=== PATIENT | female | born 1985 | race Caucasian/White ===

== ENCOUNTER → 2023-09-03 13:17 | Outpatient (BNVA) | payer OTHER, SELFPAY | PROVIDERS: Visit Provider Obstetrics & Gynecology | DX: Z12.4 Encounter for screening for malignant neoplasm of cervix (principal) | CPT/HCPCS: 87624 ==

== ENCOUNTER 2024-01-15 13:13 | Observation (INO) | payer OTHER, SELFPAY ==
--- NOTE | 2024-01-07 10:09 | P.ANESASSM_ITS ---
Pre-Anesthetic Assessment Height/Weight: Height 1.55 m Operation Date: 01/15/24 13:40 Proposed Procedures p Anterior Repair Anterior Colporrhaphy 43457, 64376, N81.10, N39.3(Not Applicable) - Hamlet Morse MD s Sling Single Incision Midurethral Sling(Not Applicable) - Hamlet Morse MD Social No alcohol and No tobacco Exam alert, oriented x 3, clear to auscultation bilaterally and regular rate & rhythm Airway Submandibular: within normal limits Cervical ROM: within normal limits Mallampati: Class I Dentition: partials History/ROS No significant history except as noted Pulmonary None reported CV/HEM None reported Hepatic None reported Anesthetic Plan ASA status: 2 Anesthesia: General Risk of > 500 ml blood loss (7ml/kg in children): No Medications/Allergies Home Medications Medication Instructions Recorded Confirmed Last Taken Type liraglutide 0.6 mg/0.1 mL (18 mg/3 0.6 mg SUBCUT DAILY 09/03/23 01/07/24 01/01/24 History mL) subcutaneous pen injector (Victoza 3-Antoni) oxycodone-acetaminophen 7.5 mg-325 1 tab PO TID PRN Pain 09/03/23 01/07/24 01/07/24 History mg tablet (Percocet) Allergies Allergy/AdvReac Type Severity Reaction Status Date / Time No Known Allergies Allergy Verified 01/07/24 08:24 PFS Anesthesia Family History Grandmother Breast cancer Heart disease Stroke Diabetes Grandfather Heart disease Father Heart disease Hypertension Denies family history of Colon cancer Ovarian cancer Prostate cancer Hypercholesteremia Hyperlipidemia Uterine cancer Thyroid disease Social History Smoking and tobacco/nicotine status: never used tobacco/nicotine Data Anesthesia 01/07/24 09:50 01/07/24 09:50 Cardiac Studies: 2 No Data to Display
[2024-01-07 10:11] LABS: Basophils # 0.1 10^3/uL (0.0-0.1); Basophils % 0.6 %; Eosinophils # 0.1 10^3/uL (0.0-0.8); Hematocrit 40.4 % (36-47); Lymphocytes # 2.6 10^3/uL (0.8-4.8); Lymphocytes % 27.6 %; Mean Corpuscular HGB Conc 34.4 g/dL (30-55); Mean Corpuscular Hemoglobin 31.1 pg (27-33); Mean Corpuscular Volume 90.4 fl (85-98); Mean Platelet Volume 10.8 fL (7.4-10.4); Monocytes # 0.5 10^3/uL (0.2-0.9); Monocytes % 5.7 %; Neutrophils # 6.03 10^3/uL (1.8-7.7); Neutrophils % 64.9 %; Nucleated Red Blood Cells % 0 %; Platelet Count 261 10^3/cmm (157-399); Red Blood Count 4.47 10^6/uL (3.85-5.65); Red Cell Distribution Width 12.5 % (12.1-15.1); White Blood Count 9.29 10^3/uL (3.29-11.43)
[2024-01-07 10:33] LABS: Alanine Aminotransferase 14 U/L (0-33); Albumin Level 4.7 g/dL (3.5-5.2); Alkaline Phosphatase 33 U/L (35-105); Anion Gap 18.3 (5-19); Aspartate Amino Transferase 12 U/L (0-32); Blood Urea Nitrogen 11 mg/dL (6-20); Calcium 9.2 mg/dL (8.5-10.5); Carbon Dioxide 22 mmol/L (22-29); Chloride 101 mmol/L (98-107); Globulin 2.7 g/dL (1.3-4.6); Glomerular Filtration Rate 92.7 mL/min (90-130); Glucose 101 mg/dL (65-115); Osmolality Calculated 284 mOsm/kg (285-295); Potassium 4.3 mmol/L (3.5-5.1); Sodium 137 mmol/L (136-145); Total Bilirubin 0.3 mg/dL (0.15-1.2); Total Protein 7.4 g/dL (6.6-8.7)
[2024-01-15] VITALS (15 sets, daily range): BP systolic 93–150; BP diastolic 62–100; PULSE 59–93; RESP 12–18; TEMP 36.4–36.9; O2SAT 97–100; BMI 30.9
--- NOTE | 2024-01-15 10:27 | W.PM.OPSUD ---
Surgery/Procedure H&P Update DATE OF PROCEDURE: January 15, 2024 DATE H&P PERFORMED: 01/07/24 H&P UPDATE INFORMATION: I have reviewed H&P completed within last 30 days, I have examined patient prior to procedure and No changes to prior documentation PREOP DIAGNOSIS: Cystocele, stress incontinence PLANNED PROCEDURE: Operation Date: 01/15/24 11:40 Proposed Procedures p Anterior Repair Anterior Colporrhaphy 32627, 92284, N81.10, N39.3(Not Applicable) - Hamlet Morse MD s Sling Single Incision Midurethral Sling(Not Applicable) - Hamlet Morse MD
[2024-01-15] MEDS: sodium chloride 0.9% 500 ML IV (10:39)
--- NOTE | 2024-01-15 10:41 | P.ANESUD_ITS ---
Pre-Anesthetic Update Pre-Anesthetic Assessment: Date of Surgery/Procedure: 01/15/24 Preop Lelo gnosis: Cystocele, stress incontinence Proposed Procedure: Operation Date: 01/15/24 11:40 Proposed Procedures p Anterior Repair Anterior Colporrhaphy 59310, 82988, N81.10, N39.3(Not Applicable) - Hamlet Morse MD s Sling Single Incision Midurethral Sling(Not Applicable) - Hamlet Morse MD Any changes to Pre-Anesthetic Assessment?: No Last Intake: Intake Last Liquid Date 01/14/24 Last Liquid Time 23:30 Last Solid Date 01/14/24 Last Solid Time 22:50 Vitals: Temperature 97.8 F 01/15/24 10:17 Temperature Source Temporal Artery S can 01/15/24 10:17 Pulse Rate 88 01/15/24 10:17 Pulse Rhythm Regular 01/15/24 10:17 Pulse Strength 3+ Normal 01/15/24 10:17 Respiratory Rate 18 01/15/24 10:17 Blood Pressure 150/100 01/15/24 10:17 Blood Pressure Meron n 116 01/15/24 10:17 Pulse Oximetry 100 01/15/24 10:17 Oxygen Delivery Me thod Room Air 01/15/24 10:17 Exam: Pre-Anes Outpt Exam: alert, oriented x 3, clear to auscultation bilaterally and regular rate & rhythm Cardiac Studies: No Data to Display
[2024-01-15] MEDS: scopolamine 1.5 Patch 1 PATCH TRANSDERMA (10:43)
[2024-01-15 10:55] LABS: Add Urine Microscopic? NO; Charge for UA Resulting for Rev
[2024-01-15] MEDS: ceFAZolin 2,000 mg SDV 2000 MG IVP (10:55)
[2024-01-15 10:57] LABS: OR HCG Qualitative Urine Negative (Negative)
[2024-01-15 11:00] LABS: Bilirubin Urine Neg (Negative); Blood Urine Neg (Negative); Glucose Urine UA Norm (Normal); Ketones Urine Negative (Negative); Leukocyte Esterase Urine Negative (Negative); Nitrate Urine Negative (Negative); Protein Urine Neg (Negative); Specific Gravity, Urine 1.015 (1.005-1.030); Urine Appearance Clear (CLEAR); Urine Color Yellow (Yellow); Urobilinogen Urine Norm (Negative); pH Urine 5 (5-7)
[2024-01-15] MEDS: lidocaine-epi 2% PF 1:200,000 20 mL SDV INJECTION (12:26)
--- NOTE | 2024-01-15 12:33 | P.OP_ITS ---
Operative Report Date of procedure: January 15, 2024 Pre-op diagnosis: Cystocele stage I Stress urinary incontinence Post-op diagnosis: same Post-op diagnosis: Cystocele stage II Urinary stress incontinence Procedure done: Anterior colporrhaphy augmented with allograft Mid urethral sling Implants: Coloplast dermis allograft Coloplast Altis sling Surgeon: Hamlet Morse MD Estimated blood loss (mL): 330 IV fluids (mL): 1,200 Urine output (mL): 300 Complications: Bleeding Procedure: After obtaining informed consent, the patient was taken to the operating room and placed in the supine position, given general anesthesia, and prepped and draped in sterile fashion. The abdomen, vulva and vagina were prepped and draped in a sterile manner. A time out procedure was performed. The anterior vaginal mucosa beneath the midurethra was infiltrated with 2% lidocaine with epinephrine. A vertical midline incision was made beneath the midurethra, nearly 1.5 cm length. Careful submucosal dissection was performed bilaterally up to the interior portion of the inferior pubic ramus. The insertion of adductor longus tendon on the patient?s pubic ramus was identified as reference land braxton. Palpated the notch along the internal edge of ischiopubic ramus where the adductor longus tendon and the inferior pubic ramus meet. The Altis single incision sling (SIS) was selected. Then the needle of the SIS inserted aiming at the location of this notch. One of the integrated self- fixating tips place onto the needle by sliding it over the end of the needle. The needle/sling assembly was inserted toward the location of identified reference notch making sure that the flat of the handle is perpendicular to the desired path. The needle was tracked along the posterior surface of the ischiopubic ramus until the midline braxton on the mesh is approximately at the midline position under the urethra. The needle was removed and the same was repeated on the contralateral side until the appropriate sling tension under the urethra was achieved ensuring that the mesh lays flat. The needle was removed and vaginal incision was closed in a running interlocking fashion with 2-0 Vicryl. Then the vaginal mucosa was then injected in the midline with normal saline. The vaginal mucosa was scored in the midline with the Bovie approximately 1 cm medial to the urethral meatus to 1 cm distal to the cervix. This vaginal mucosa was then undermined and then incised in the midline with the Metzenbaum scissors. The lateral aspects of the vaginal mucosa were then grasped with the Allis clamps and the vaginal mucosa was then dissected off the underlying fascia with the Metzenbaum scissors. Again, there was noted to be quite a bit of oozing at the incision, which was controlled with cautery. After adequate dissection was performed, bilaterally. A Coloplast dermis allograft was modified at time of application to fit spacea, 4 x 4 cm piece . The Coloplast allograft placed in front of cystocele ready to be implanted facing the vagina mucosa. Suture is placed at distal end of graft and placed towards vaginal cuff. Final suture is placed on proximal portion of the graft to complete the placement overlying the bladder. Then Interrupted vertical mattress sutures of 0 Vicryl were used to elevate the cystocele superiorly. The excessive vaginal mucosa was then trimmed with the Metzenbaum scissors and the vaginal mucosa was then reapproximated in the running interlocking fashion with 2-0 Vicryl. Bludigo was given IV Then the Forte catheter was removed and cystoscope was inserted. The bladder was filled with sterile water. Complete evaluation of the bladder mucosa was performed noting no lacerations, dimpling, tears, bleeding of the mucosa or muscular layers. Both ureteral orifices were identified. Prompt excretion of urine from both ureteral orifices was noted. Cystoscope was withdrawn. The Forte catheter was replaced. Excellent hemostasis was obtained. A vaginal pack was placed overnight as postoperative support for the vaginal tissues after graft placement and closure of vaginal incisions. Sponge, lap, needle, and instrument counts were correct times three. The patient was taken to the recovery room, awake and in stable condition.
--- NOTE | 2024-01-15 13:15 | ANE.PACU2 ---
Inpatient post-anesthesia follow up: Airway intact: Yes Vital signs: Temperature 97.5 F Pulse Rate 63 Respiratory Rate 17 Blood Pressure 93/67 Pulse Oximetry 97 Oxygen Delivery Me thod Room Air Oxygen Flow Rate 10 Fraction of Inspir ed Oxygen Hydration adequate: Yes Nausea and vomiting: No Pain level: 1 Mental status: Baseline
[2024-01-15] MEDS: ketorolac 30 mg/mL INJ IVP ×2 (14:05→20:22)
[2024-01-15] MEDS: dextrose 5%-lactated ringers 1,000 ML 125 ML IV ×2 (14:06→23:53)
[2024-01-15] MEDS: HYDROcodone-acetaminophen 5-325 mg Tablet PO ×2 (16:52→22:48)
--- NOTE | 2024-01-15 19:41 | PM.OBGYDC ---
Discharge Providers MANAGER DIALYSIS Date of Admission: 01/15/24 13:13 Date of Discharge: 01/15/24 Attending Provider at Admission: Hamlet Morse MD Attending Provider at Discharge: Hamlet Morse MD Primary Care Provider: Casey Jones Reason for Visit Reason for Visit: N81.10 Hospital Course Hospital Course Mrs. Goldman 38-year-old female with a history of cystocele and stress urinary incontinence. She was admitted for planned anterior colporrhaphy augmented with allograft and mid urethral sling. The procedures were performed, complicated by mild bleeding. Postop recovery uneventful. She is afebrile and hemodynamically stable. Tolerating diet well. Ambulating without difficulty. She was counseled regarding pelvic rest for 6 weeks (no sex, no tampons, no vaginal douches). Return to the emergency room if any fever, increased bleeding or pain. Physical Exam Narrative: GA: Alert and oriented ?3. HEENT: WNL. Heart: Regular rate and rhythm. Lungs: Clear to auscultation bilaterally. Abdomen: Bowel sounds present, nontender. [employer]ER: spotting bleeding. Extremities: No edema, no cyanosis, no calves pain. Urinary Catheter Management: Forte: Cath Placed During This Visit: yes Urinary Catheter Date of Insertion: 01/15/24 Urinary Catheter Time of Insertion: 11:39 History History History 4 Term 4 0 Miscarriages/Ectopic 0 Living Children 4 Discharge Data Studies Completed and Pending Pending at discharge Category Date Time Status Hemagram Timed Lab 01/16/24 05:00 Uncollected Laboratory Results WBC 9.29 10^3/uL (3.29-11.43) 01/07/24 09:50 RBC 4.47 10^6/uL (3.85-5.65) 01/07/24 09:50 Hgb 13.90 g/dL (11.27-16.99) 01/07/24 09:50 Hct 40.4 % (36-47) 01/07/24 09:50 MCV 90.4 fl (85-98) 01/07/24 09:50 MCH 31.1 pg (27-33) 01/07/24 09:50 MCHC 34.4 g/dL (30-55) 01/07/24 09:50 RDW 12.5 % (12.1-15.1) 01/07/24 09:50 Plt Count 261 10^3/cmm (157-399) 01/07/24 09:50 MPV 10.8 fL (7.4-10.4) H 01/07/24 09:50 Neut % (Auto) 64.9 % 01/07/24 09:50 Lymph % (Auto) 27.6 % 01/07/24 09:50 [place] % (Auto) 5.7 % 01/07/24 09:50 Eos % (Auto) 1.0 % 01/07/24 09:50 Baso % (Auto) 0.6 % 01/07/24 09:50 Neut # (Auto) 6.03 10^3/uL (1.8-7.7) 01/07/24 09:50 Lymph # (Auto) 2.6 10^3/uL (0.8-4.8) 01/07/24 09:50 [place] # (Auto) 0.5 10^3/uL (0.2-0.9) 01/07/24 09:50 Eos # (Auto) 0.1 10^3/uL (0.0-0.8) 01/07/24 09:50 Baso # (Auto) 0.1 10^3/uL (0.0-0.1) 01/07/24 09:50 Nucleated RBC % (auto) 0 % 01/07/24 09:50 Nucleated RBCs # 0.0 /100WBC 01/07/24 09:50 Sodium 137 mmol/L (136-145) 01/07/24 09:50 Potassium 4.3 mmol/L (3.5-5.1) 01/07/24 09:50 Chloride 101 mmol/L (98-107) 01/07/24 09:50 Carbon Dioxide 22 mmol/L (22-29) 01/07/24 09:50 Anion Gap 18.3 (5-19) 01/07/24 09:50 BUN 11 mg/dL (6-20) 01/07/24 09:50 Creatinine 0.7 mg/dL (0.5-0.9) 01/07/24 09:50 GFR Calculation 92.7 mL/min (90-130) 01/07/24 09:50 Glucose 101 mg/dL (65-115) 01/07/24 09:50 Calculated Osmolality 284 mOsm/kg (285-295) L 01/07/24 09:50 Calcium 9.2 mg/dL (8.5-10.5) 01/07/24 09:50 Total Bilirubin 0.3 mg/dL (0.15-1.2) 01/07/24 09:50 AST 12 U/L (0-32) 01/07/24 09:50 ALT 14 U/L (0-33) 01/07/24 09:50 Alkaline Phosphatase 33 U/L (35-105) L 01/07/24 09:50 Total Protein 7.4 g/dL (6.6-8.7) 01/07/24 09:50 Albumin 4.7 g/dL (3.5-5.2) 01/07/24 09:50 Globulin 2.7 g/dL (1.3-4.6) 01/07/24 09:50 Urine Color Yellow (Yellow) 01/15/24 10:30 Urine Appearance Clear (CLEAR) 01/15/24 10:30 Urine pH 5 (5-7) 01/15/24 10:30 Ur Specific [place] 1.015 (1.005-1.030) 01/15/24 10:30 Urine Protein Neg (Negative) 01/15/24 10:30 Urine Glucose (UA) Norm (Normal) 01/15/24 10:30 Urine Ketones Negative (Negative) 01/15/24 10:30 Urine Blood Neg (Negative) 01/15/24 10:30 Urine Nitrate Negative (Negative) 01/15/24 10:30 Urine Bilirubin Neg (Negative) 01/15/24 10:30 Urine Urobilinogen Norm mg/dL (Negative) 01/15/24 10:30 Ur Leukocyte Esterase Negative (Negative) 01/15/24 10:30 Urine HCG, Qual Negative (Negative) 01/15/24 10:28 Blood Type A Positive 01/15/24 10:30 Rho(D) Type Rh positive 01/15/24 10:30 Antibody Screen Negative 01/15/24 10:30 Vitals Last Vital Signs Temp 98.3 F 01/15/24 18:30 Pulse 93 01/15/24 18:30 Resp 14 01/15/24 18:30 BP 113/65 01/15/24 18:30 Pulse Ox 99 01/15/24 18:30 O2 Del Method Room Air 01/15/24 18:30 O2 Flow Rate 10 01/15/24 12:43 Results Labs OB ([facility]): Blood Type A Positive 01/15/24 Antibody Screen Negative 01/15/24 Hct 40.4 % (36-47) 01/07/24 Hgb 13.90 g/dL (11.27-16.99) 01/07/24 Rho(D) Type Rh positive 01/15/24 Plt Count 261 10^3/cmm (157-399) 01/07/24 Pap Smear Interpret See note 09/03/23 Discharge Plan Discharge Patient Disposition: Home Condition: Stable Prescriptions: New hydrocodone-acetaminophen 5-325 mg tablet 1 tab PO Q4H PRN (Reason: pain) Qty: 10 0RF acetaminophen 325 mg capsule 325 mg PO Q4H PRN (Reason: fever or postoperative pain) Qty: 60 0RF ibuprofen 800 mg tablet 800 mg PO TID PRN (Reason: pain) Qty: 60 0RF Continued oxycodone-acetaminophen [Percocet] 7.5-325 mg tablet 1 tab PO TID PRN (Reason: Pain) Victoza 3-Antoni 0.6 mg/0.1 mL (18 mg/3 mL) pen injector 0.6 mg SUBCUT DAILY Discharge Orders: Discharge Order (Routine); Ordered 01/15/24 Ordered By: Hamlet Morse Discharge Diet: Usual diet Discharge Activity: Limit activity as instructed Patient Instructions: Acute Wound Care (DC), Opioid Safety, Post Anesthesia Care, Anterior Vaginal Repair (GEN), Bladder Sling for Women (GEN) Activity Restrictions/Additional Instructions: 1. Please call [facility] on next working day to make your post-operative appointment in 2 weeks. 2. Please stay home until you come back to the clinic on first post-hospatilization check up. 3. Please follow instructions on your medications CAREFULLY. 4. If you have abdominal incision, do not cover it unless dressing is necessary because of drainage. OK to shower, but avoid bath. Leave steri-strips until they fall off. If they are still on one week after surgery, you may remove them. 5. If you had vaginal surgery or vaginal repair, Dr. Morse may instruct you to take SITZ bath. 6. Yellow, blood tinged odorous vaginal discharge is usually normal after hysterectomy or vaginal surgeries. 7. No SEXUAL INTERCOURSE, tampons, or douches until you are completely released from the post-operative care. 8. Avoid constipation by eating right and maybe using some Metamucil or Milk of Magnesia. 9. All prescription refills are given during the working hours. Please do no wait till it runs out. Call the clinic at [phone] before your medication runs out. The clinic will get in touch with your doctor to prescribe medications if necessary. 10. Please remain within 40 mile radius from our hospital because emergencies do happen now and then during the post-operative period. 11. If you have stairs at home, take one step at a time slowly and minimize the number of trips. It helps to stay in one floor for the next few days. No lifting except what you can lift by one hand until you are released from the post-operative care. 12. Driving is discouraged until you are well healed. It may be 3-4 weeks before you feel strong enough to drive. You should be able to turn and look through the rear window without pain and you should be able to push the brake pedal very hard without pain before you drive. No fast rules, but SAFETY should be your primary concern. DO NOT drive if you are on sedating medications such as narcotics. 13. Call the clinic (during working hours) to make urgent appointment or go to the Emergency room, if any of the following occurs: i. Vaginal bleeding becomes heavy, more than a period. ii. Incision becomes red and sore, or drains pus. iii. Your TEMPERATURE is over 100.4F or you have chill. iv. IV site becomes red and swollen (a little ``knot?? is usually OK) v. Persistent nausea and vomiting vi. Persistent constipation or diarrhea vii. Rash or allergic reaction to medications. Discharge Attestations MANAGER DIALYSIS Time Spent in Discharge Care*: greater than 30 min Coding Level of Care Code Acute Code for Chg Fwd
[2024-01-15] MEDS: docusate sodium 100 mg Capsule PO (20:22)
[2024-01-16] MEDS: ketorolac 30 mg/mL INJ IVP (02:05)
--- NOTE | 2024-01-16 05:22 | PC.NURSE ---
vag packing removed at this time. pt tolerated well.
[2024-01-16 05:23] VITALS: BP 110/72; PULSE 74; RESP 16; TEMP 36.7; O2SAT 96
[2024-01-16 05:46] LABS: Hematocrit 29.5 % (36-47); Mean Corpuscular HGB Conc 34.9 g/dL (30-55); Mean Corpuscular Hemoglobin 32.2 pg (27-33); Mean Corpuscular Volume 92.2 fl (85-98); Mean Platelet Volume 11.2 fL (7.4-10.4); Platelet Count 198 10^3/cmm (157-399); Red Cell Distribution Width 12.5 % (12.1-15.1); White Blood Count 12.35 10^3/uL (3.29-11.43)
[2024-01-16] MEDS: docusate sodium 100 mg Capsule PO (09:04)
[2024-01-16] MEDS: ibuprofen 800 mg tablet PO (09:04)
[2024-01-16 11:35] VITALS: BP 111/79; PULSE 72; RESP 16; TEMP 36.7; O2SAT 98
== END 2024-01-16 11:38 | disposition home or self-care (01) ==
LOC: OBGYN 13:14
PROVIDERS: Admitting Provider Obstetrics & Gynecology; PCP Family Medicine; Visit Provider Obstetrics & Gynecology
PROC: 0JQC0ZZ Repair Pelvic Region Subcutaneous Tissue and Fascia, Open Approach (ICD-10-PCS; CPT 57240; principal; 2024-01-15 11:30)
PROC: (CPT 57288; 2024-01-15 11:30)
DX: N81.10 Cystocele, unspecified (principal); N39.3 Stress incontinence (female) (male); Z87.891 Personal history of nicotine dependence
CPT/HCPCS: 57240; 57288; 36415; 51798; 80053; 81003; 81025; 85025; 85027; 86850; 86900; C1713; C1762; G0378; J0131; J0690; J1100; J1200; J1885; J2250; J2405; J2704; J3010; J7040; J7121

== ENCOUNTER 2024-01-23 10:24 | Emergency (ER) | payer OTHER, SELFPAY ==
[2024-01-23 10:39] VITALS: BP 143/101; PULSE 111; RESP 16; TEMP 37.1; O2SAT 100
--- NOTE | 2024-01-23 10:45 | CT_ITS ---
WS: [id number] CT HEAD TECHNIQUE: Noncontrast CT of the head obtained from the skullbase to the vertex. CLINICAL INFORMATION: syncope COMPARISON: None. DLP: 1089.[address] scans at [facility] use at least one of these dose optimization techniques: automated e xposure control; mA and/or kV adjustment per patient size (includes targeted exams where dose is matc hed to clinical indication); or iterative reconstruction. FINDINGS: No evidence of intracranial hemorrhage or mass effect. Ventricular system and basal cisterns are rosenbaum nt. No extra-axial fluid collections. No evidence of mass or mass effect. Normal pearl-white different iation. Paranasal sinuses and mastoid air cells are well aerated. .Normal visualized soft tissues. CT/CT head wo con* [id number] IMPRESSION: 1. No evidence of intracranial hemorrhage or mass effect. 2. No acute intracranial findings.
--- NOTE | 2024-01-23 10:45 | CT_ITS ---
WS: [id number] CT ABDOMEN PELVIS TECHNIQUE: Contrast-enhanced CT of the abdomen and pelvis with coronal and sagittal reformatted image s. CLINICAL INFORMATION: vag bleeding COMPARISON: None. DLP: 536.[address] scans at [facility] use at least one of these dose optimization techniques: automated e xposure control; mA and/or kV adjustment per patient size (includes targeted exams where dose is matc hed to clinical indication); or iterative reconstruction. FINDINGS: Recent reported postoperative changes from anterior vaginal wall repair and bladder sling. Retroverte d uterus. Heterogeneous fluid and blood products involving the anterior vaginal wall extending from t he cervix inferiorly. Mass effect on the adjacent bladder. Fluid and edema extends inferiorly to the vaginal introitus. Mild associated compression of the rectum. No significant free fluid or blood prod ucts in the pelvis or cul-de-sac. Normal liver. Contracted gallbladder. Spleen size upper limits of normal. Small esophageal hiatal her kristian. Food products in the stomach. Lung bases are well aerated. Adrenal glands are normal. Normal elyse al parenchymal enhancement. No hydronephrosis. Small LEFT renal cyst. Normal portal vein and splenic vein. Normal caliber abdominal aorta. Fat-containing umbilical hernia. Normal appendix. Normal calib er abdominal aorta. No other acute findings. CT/CT abdomen pelvis w con* [id number] IMPRESSION: 1. Recent postoperative changes anterior vaginal wall repair and bladder sling . 2. Mixed attenuation blood products with fluid and edema extending from the ce rvix to the vaginal introitus with distention of the anterior vaginal wall. Sandip e of this is likely postoperative. Mass effect on the adjacent bladder. Recomme nd correlation for vaginal bleeding. Also recommend correlation for infection. 3. No evidence of free fluid or blood products in the pelvis or cul-de-sac. No other acute findings.
--- NOTE | 2024-01-23 10:47 | ED_ITS ---
HPI - Female Genitourinary 2 General: Chief complaint: Vaginal Bleeding Stated complaint: vaginal bleeding, dizziness, Time Seen by Provider: 01/23/24 10:34 Source: patient Mode of arrival: ambulatory Limitations: no limitations History of Present Illness: 38-year-old female states that she had s urgery 1 week ago with a vaginal sling and wall repair. She states that today she has had some bleeding. She denies the bleeding being heavy to me she has not been passing any clots. States she did have a lightheadedness 2 hours ago and did pass out hit her head. She denies any abdominal pain denies any fevers Associated symptoms: Reports headache(s) and syncope; Deny abdominal pain or nausea Review of Systems 2 Const: Denies: fever(s), chills, body aches or change in appetite ENMT: Denies: throat pain or dental pain Card: Reports: syncope; Denies: chest pain Resp: Denies: dyspnea GI: Denies: abdominal pain, nausea, vomiting or diarrhea : Reports: vaginal bleeding Musc: Denies: neck pain or back pain Skin/Breast: Denies: rash Neuro: Reports: headache(s) PFSH ED 2 PFSH: Family History Grandmother Breast cancer Heart disease Stroke Diabetes Grandfather Heart disease Father Heart disease Hypertension Denies family history of Colon cancer Ovarian cancer Prostate cancer Hypercholesteremia Hyperlipidemia Uterine cancer Thyroid disease Social History Smoking and tobacco/nicotine status: never used tobacco/nicotine Physical Exam 2 Const: COMMON NORMALS: no acute distress, patient oriented x3 and healthy appearing HENMT: COMMON NORMALS: normocephalic and atraumatic HEAD & SCALP: n ormocephalic and atraumatic Eye: COMMON NORMALS: Equal, round and reactive pupils present PUPIL: Yes Equal, round and reactive pupils present Neck/C-Spine: COMMON NORMALS: full ROM and supple Chest: COMMONS NORMALS: normal inspection of the chest Resp: COMMON NORMALS: normal respiratory effort, No retractions, No use of accessory muscles and clear to auscultation bilaterally AUSCULTATION: clear to auscultation bilaterally Cardio: COMMON NORMALS: regular rate, regular rhythm and No murmurs present (Cardio) RATE: regular rate RHYTHM: regular rhythm GI: COMMON NORMALS: Normal to inspection, nondistended, normoactive bowel sounds present, Soft to palpation, non-tender and no masses PALPATION: Yes Soft to palpation Extremity: COMMON NORMALS: normal to inspection and full ROM Neuro: COMMON NORMALS: patient oriented x3, moves all extremities and no focal motor deficits Psych: COMMON NORMALS: mental status grossly normal, Normal thought process present and cooperative THOUGHT PROCESS: Normal thought process present Skin: COMMON NORMALS: no rashes or lesions noted and no wounds GENERAL SKIN EXAM: no rashes or lesions noted Course 2 Vital Signs: Vital signs: Vital Signs Temperature 98.7 F 01/23/24 10:39 Pulse Rate 111 H 01/23/24 10:39 Respiratory Rate 16 01/23/24 10:39 Blood Pressure 143/101 01/23/24 10:39 Pulse Oximetry 100 01/23/24 10:39 Oxygen Delivery Me thod Room Air 01/23/24 10:39 MDM - Female Medical Decision Making Patient presents here with vaginal bleeding I did speak to her surgeon Dr. Morse who recommended to place her on Flagyl she has an appoint with him on Sunday follow-up as scheduled she is to return if worsening her hemoglobin here is normal she stable for discharge Medical Records I reviewed the patient's medical records. Lab Data I reviewed the patient's lab results. 01/23/24 10:47 01/23/24 10:47 Radiology Impressions Abdomen/Pelvis CT 01/23/24 10:45 IMPRESSION: 1. Recent postoperative changes anterior vaginal wall repair and bladder sling. 2. Mixed attenuation blood products with fluid and edema extending from the cervix to the vaginal introitus with distention of the anterior vaginal wall. Some of this is likely postoperative. Mass effect on the adjacent bladder. Recommend correlation for vaginal bleeding. Also recommend correlation for infection. 3. No evidence of free fluid or blood products in the pelvis or cul-de-sac. No other acute findings. Head CT 01/23/24 10:45 IMPRESSION: 1. No evidence of intracranial hemorrhage or mass effect. 2. No acute intracranial findings. Laboratory Results WBC 12.04 10^3/uL (3.29-11.43) H 01/23/24 10:47 RBC 3.86 10^6/uL (3.85-5.65) 01/23/24 10:47 Hgb 12.10 g/dL (11.27-16.99) 01/23/24 10:47 Hct 36.0 % (36-47) 01/23/24 10:47 MCV 93.3 fl (85-98) 01/23/24 10:47 MCH 31.3 pg (27-33) 01/23/24 10:47 MCHC 33.6 g/dL (30-55) 01/23/24 10:47 RDW 13.1 % (12.1-15.1) 01/23/24 10:47 Plt Count 312 10^3/cmm (157-399) 01/23/24 10:47 MPV 10.6 fL (7.4-10.4) H 01/23/24 10:47 Neut % (Auto) 80.8 % 01/23/24 10:47 Lymph % (Auto) 12.8 % 01/23/24 10:47 Mcdowell % (Auto) 4.8 % 01/23/24 10:47 Eos % (Auto) 0.8 % 01/23/24 10:47 Baso % (Auto) 0.6 % 01/23/24 10:47 Neut # (Auto) 9.72 10^3/uL (1.8-7.7) H 01/23/24 10:47 Lymph # (Auto) 1.5 10^3/uL (0.8-4.8) 01/23/24 10:47 Mcdowell # (Auto) 0.6 10^3/uL (0.2-0.9) 01/23/24 10:47 Eos # (Auto) 0.1 10^3/uL (0.0-0.8) 01/23/24 10:47 Baso # (Auto) 0.1 10^3/uL (0.0-0.1) 01/23/24 10:47 Nucleated RBC % (auto) 0 % 01/23/24 10:47 Nucleated RBCs # 0.0 /100WBC 01/23/24 10:47 Sodium 140 mmol/L (136-145) 01/23/24 10:47 Potassium 3.8 mmol/L (3.5-5.1) 01/23/24 10:47 Chloride 105 mmol/L (98-107) 01/23/24 10:47 Carbon Dioxide 22 mmol/L (22-29) 01/23/24 10:47 Anion Gap 16.8 (5-19) 01/23/24 10:47 BUN 14 mg/dL (6-20) 01/23/24 10:47 Creatinine 0.7 mg/dL (0.5-0.9) 01/23/24 10:47 GFR Calculation 92.7 mL/min (90-130) 01/23/24 10:47 Glucose 91 mg/dL (65-115) 01/23/24 10:47 Calculated Osmolality 290 mOsm/kg (285-295) 01/23/24 10:47 Calcium 8.9 mg/dL (8.5-10.5) 01/23/24 10:47 Total Bilirubin 0.3 mg/dL (0.15-1.2) 01/23/24 10:47 AST 16 U/L (0-32) 01/23/24 10:47 ALT 27 U/L (0-33) 01/23/24 10:47 Alkaline Phosphatase 44 U/L (35-105) 01/23/24 10:47 Total Protein 7.0 g/dL (6.6-8.7) 01/23/24 10:47 Albumin 4.2 g/dL (3.5-5.2) 01/23/24 10:47 Globulin 2.8 g/dL (1.3-4.6) 01/23/24 10:47 HCG, Qual Negative (Negative) 01/23/24 10:47 Urine Color Dark yellow (Yellow) A 01/23/24 10:57 Urine Appearance Clear (CLEAR) 01/23/24 10:57 Urine pH 5.5 (5-7) 01/23/24 10:57 Ur Specific [place] 1.018 (1.005-1.030) 01/23/24 10:57 Urine Protein Trace (Negative) A 01/23/24 10:57 Urine Glucose (UA) Negative (Normal) 01/23/24 10:57 Urine Ketones Negative (Negative) 01/23/24 10:57 Urine Blood 3+ (Negative) A 01/23/24 10:57 Urine Nitrate Negative (Negative) 01/23/24 10:57 Urine Bilirubin Negative (Negative) 01/23/24 10:57 Urine Urobilinogen 1.0 mg/dL (Negative) 01/23/24 10:57 Ur Leukocyte Esterase 1+ (Negative) A 01/23/24 10:57 Urine RBC 21-50 /hpf (0-2) 01/23/24 10:57 Urine WBC 11-20 /hpf (0-5) 01/23/24 10:57 Ur Squamous Epith Cells 6-10 /hpf (0-5) 01/23/24 10:57 Amorphous Sediment Not Reportable 01/23/24 10:57 Urine Bacteria Trace /hpf (NONE) 01/23/24 10:57 Hyaline Casts 8.67 /lpf 01/23/24 10:57 All radiology interpretation(s) finalized by discharge Discharge Plan Discharge Patient Disposition: Home Clinical Impression: Vaginal bleeding Condition: Stable Prescriptions: New metronidazole 500 mg tablet 500 mg PO Q8H 7 Days Qty: 21 0RF No Action oxycodone-acetaminophen [Percocet] 7.5-325 mg tablet 1 tab PO TID PRN (Reason: Pain) Victoza 3-Antoni 0.6 mg/0.1 mL (18 mg/3 mL) pen injector 0.6 mg SUBCUT DAILY acetaminophen 325 mg capsule 325 mg PO Q4H PRN (Reason: fever or postoperative pain) Qty: 60 0RF ibuprofen 800 mg tablet 800 mg PO TID PRN (Reason: pain) Qty: 60 0RF hydrocodone-acetaminophen 5-325 mg tablet 1 tab PO Q4H PRN (Reason: pain) Qty: 10 0RF Discharge Orders: Discharge ED (Routine); Ordered 01/23/24 Ordered By: Francoise Barron Referrals: Hamlet Morse MD [Physician] - 1-3 days Casey Jones [Primary Care Provider] - Discharge Diet: Advance as tolerated Discharge Activity: Resume usual activity Patient Instructions: Abnormal (Dysfunctional) Uterine Bleeding (ED), Anterior Vaginal Repair (DC) Coding Level of Care Code ED [employer] Operator for Chg Giorgio
[2024-01-23] MEDS: sodium chloride 0.9% 1,000 ML 999 ML IV (11:03)
[2024-01-23 11:06] LABS: Basophils # 0.1 10^3/uL (0.0-0.1); Basophils % 0.6 %; Eosinophils # 0.1 10^3/uL (0.0-0.8); Eosinophils % 0.8 %; Lymphocytes # 1.5 10^3/uL (0.8-4.8); Lymphocytes % 12.8 %; Mean Corpuscular HGB Conc 33.6 g/dL (30-55); Mean Corpuscular Hemoglobin 31.3 pg (27-33); Mean Corpuscular Volume 93.3 fl (85-98); Mean Platelet Volume 10.6 fL (7.4-10.4); Monocytes # 0.6 10^3/uL (0.2-0.9); Monocytes % 4.8 %; Neutrophils # 9.72 10^3/uL (1.8-7.7); Neutrophils % 80.8 %; Nucleated Red Blood Cells % 0 %; Platelet Count 312 10^3/cmm (157-399); Red Blood Count 3.86 10^6/uL (3.85-5.65); Red Cell Distribution Width 13.1 % (12.1-15.1); White Blood Count 12.04 10^3/uL (3.29-11.43)
--- NOTE | 2024-01-23 11:09 | ECG_ITS ---
[facility] Test Date: 2024-01-23 Pat Name: Danette Goldman Department: Room: Gender: Female E Commerce Web Developer: : 1985 Requested By: Francoise Barron Order Number: [id number] Chasidy MD: Vern Templeton M.D. Measurements Intervals [place] Rate: 107 P: 59 FL: 152 QRS: 45 QRSD: 108 T: 62 QT: 358 QTc: 480 Interpretive Statements SINUS TACHYCARDIA WITH OCCASIONAL SUPRAVENTRICULAR PREMATURE COMPLEXES LOW QRS VOLTAGE IN EXTREMITY LEADS [QRS DEFLECTION < 0.5 mV IN LIMB LEADS] No previous ECG available for comparison Electronically Signed On 01-23-2024 17:13:41 CDT by Vern Templeton M.D. [id number]
[2024-01-23 11:16] LABS: HCG, Serum Qual Negative (Negative)
[2024-01-23 11:22] LABS: Charge for UA Resulting for Rev
[2024-01-23 11:22] LABS: Albumin Level 4.2 g/dL (3.5-5.2); Chloride 105 mmol/L (98-107); Potassium 3.8 mmol/L (3.5-5.1); Sodium 140 mmol/L (136-145)
[2024-01-23 11:26] LABS: Bilirubin Urine Negative (Negative); Blood Urine 3+ (Negative); Glucose Urine UA Negative (Normal); Ketones Urine Negative (Negative); Leukocyte Esterase Urine 1+ (Negative); Nitrate Urine Negative (Negative); Protein Urine Trace (Negative); Specific Gravity, Urine 1.018 (1.005-1.030); Urine Appearance Clear (CLEAR); Urine Color Dark Yellow (Yellow); pH Urine 5.5 (5-7)
[2024-01-23 11:28] LABS: Bacteria Urine Trace /hpf; Hyaline Casts Urine 8.67 /lpf; RBC Urine 21-50 /hpf (0-2)
[2024-01-23 11:47] LABS: Alanine Aminotransferase 27 U/L (0-33); Alkaline Phosphatase 44 U/L (35-105); Anion Gap 16.8 (5-19); Aspartate Amino Transferase 16 U/L (0-32); Blood Urea Nitrogen 14 mg/dL (6-20); Calcium 8.9 mg/dL (8.5-10.5); Carbon Dioxide 22 mmol/L (22-29); Creatinine Clr Calc Pharmacy 97.9402; Globulin 2.8 g/dL (1.3-4.6); Glomerular Filtration Rate 92.7 mL/min (90-130); Glucose 91 mg/dL (65-115); Osmolality Calculated 290 mOsm/kg (285-295); Total Bilirubin 0.3 mg/dL (0.15-1.2)
[2024-01-23] MEDS: iohexol 350 mg/mL 500 mL Btl (per mL) IV (12:03)
[2024-01-23] MEDS: metroNIDAZOLE 500 MG Tablet PO (13:16)
[2024-01-23 13:19] VITALS: BP 137/96; PULSE 98; O2SAT 100
== END 2024-01-23 13:22 | disposition home or self-care (01) ==
PROVIDERS: Emergency Provider Emergency Medicine; PCP Family Medicine
DX: N93.9 Abnormal uterine and vaginal bleeding, unspecified (principal); Z98.890 Other specified postprocedural states
CPT/HCPCS: 36415; 70450; 74177; 80053; 81003; 81015; 84703; 85025; 93005; 99285; J7030; Q9967

== ENCOUNTER 2024-04-08 11:36 | Observation (INO) | payer OTHER, SELFPAY ==
--- NOTE | 2024-03-31 10:08 | P.ANESASSM_ITS ---
Pre-Anesthetic Assessment Height/Weight: Height 1.55 m Operation Date: 04/08/24 08:00 Proposed Procedures p Posterior Repair Posterior Colporrhaphy 68089, N81.6(Not Applicable) - Hamlet Morse MD Familial anesthetic complications: None Was Beta Jimbo taken within 24 hours: N/A Was Clonidine taken within 24 hours: N/A Social No alcohol and No tobacco Exam alert, oriented x 3, clear to auscultation bilaterally and regular rate & rhythm Airway Mallampati: Class I Dentition: partials and other (implants) Musc/skel Rheumatoid Arthritis Anesthetic Plan ASA status: 2 Anesthesia: General Risk of > 500 ml blood loss (7ml/kg in children): No Medications/Allergies Home Medications Medication Instructions Recorded Confirmed Last Taken Type oxycodone-acetaminophen 7.5 mg-325 1 tab PO TID PRN Pain 09/03/23 03/31/24 03/31/24 History mg tablet (Percocet) semaglutide 0.25 mg or 0.5 mg (2 0.25 mg SUBCUT .weekly 01/31/24 03/31/24 03/26/24 History mg/1.5 mL) subcutaneous pen injector (Ozempic) Allergies Allergy/AdvReac Type Severity Reaction Status Date / Time No Known Allergies Allergy Verified 03/31/24 08:23 [facility] Anesthesia Medical History No pertinent past medical history neghx: dm, thyroid, dvt/pe PCP: Dr. Durham in [place], [place] Surgical History H/O bilateral salpingectomy (~2021) at time of the endometrial ablation-- [facility] Hx of tonsillectomy History of endometrial ablation (~2021) she feels her fallopian tubes were removed at this time. Also had umbilical hernia repair at the [facility] time in [place] History of anterior colporrhaphy (~01/15/24) with allograft, mid urethral sling performed by Dr. Morse at [facility] in [place], [place] Family History Grandmother Breast cancer Heart disease Stroke Diabetes Grandfather Heart disease Father Heart disease Hypertension Denies family history of Colon cancer Ovarian cancer Prostate cancer Hypercholesteremia Hyperlipidemia Uterine cancer Thyroid disease Social History Smoking and tobacco/nicotine status: current some day tobacco/nicotine user (vape use) Data Anesthesia Cardiac Studies: No Data to Display
[2024-04-08] VITALS (20 sets, daily range): BP systolic 88–133; BP diastolic 58–96; PULSE 60–79; RESP 14–18; TEMP 36.4–36.8; O2SAT 94–100; BMI 30.9
--- NOTE | 2024-04-08 07:38 | W.PM.OPSUD ---
Surgery/Procedure H&P Update DATE OF PROCEDURE: April 08, 2024 DATE H&P PERFORMED: 03/31/24 H&P UPDATE INFORMATION: I have reviewed H&P completed within last 30 days, I have examined patient prior to procedure and No changes to prior documentation PREOP DIAGNOSIS: rectocele stage 2 PLANNED PROCEDURE: Operation Date: 04/08/24 09:25 Proposed Procedures p Posterior Repair Posterior Colporrhaphy 77710, N81.6(Not Applicable) - Hamlet Morse MD
[2024-04-08 07:52] LABS: OR HCG Qualitative Urine Negative (Negative)
[2024-04-08] MEDS: scopolamine 1.5 Patch 1 PATCH TRANSDERMA (08:28)
[2024-04-08] MEDS: sodium chloride 0.9% 1,000 ML 30 ML IV (08:28)
[2024-04-08] MEDS: sodium chloride 0.9% 500 ML IV (08:30)
[2024-04-08 08:39] LABS: Bilirubin Urine Negative (Negative); Blood Urine Negative (Negative); Glucose Urine UA Negative (Normal); Ketones Urine Negative (Negative); Leukocyte Esterase Urine Trace (Negative); Nitrate Urine Negative (Negative); Protein Urine Negative (Negative); Specific Gravity, Urine 1.021 (1.005-1.030); Urine Appearance Clear (CLEAR); Urine Color Yellow (Yellow); Urobilinogen Urine 0.2 mg/dL (Negative); pH Urine 6.5 (5-7)
--- NOTE | 2024-04-08 08:39 | SUR.PREOP ---
08:30 500ml bolus infused.
[2024-04-08 08:42] LABS: Add Urine Microscopic? YES; Bacteria Urine 2+ /hpf; RBC Urine 0-2 /hpf (0-2); WBC Urine 0-5 /hpf (0-5)
[2024-04-08 08:51] LABS: Basophils # 0.1 10^3/uL (0.0-0.1); Basophils % 0.7 %; Eosinophils # 0.1 10^3/uL (0.0-0.8); Eosinophils % 1.2 %; Lymphocytes # 1.9 10^3/uL (0.8-4.8); Mean Corpuscular HGB Conc 33.8 g/dL (30-55); Mean Corpuscular Hemoglobin 30.8 pg (27-33); Mean Corpuscular Volume 91.1 fl (85-98); Mean Platelet Volume 10.8 fL (7.4-10.4); Monocytes # 0.4 10^3/uL (0.2-0.9); Monocytes % 5.4 %; Neutrophils # 4.47 10^3/uL (1.8-7.7); Neutrophils % 65.4 %; Nucleated Red Blood Cells % 0 %; Platelet Count 314 10^3/cmm (157-399); Red Blood Count 4.39 10^6/uL (3.85-5.65); Red Cell Distribution Width 11.9 % (12.1-15.1); White Blood Count 6.84 10^3/uL (3.29-11.43)
--- NOTE | 2024-04-08 09:01 | ANES.PREANE2 ---
Pre-Anesthetic Assessment Height/Weight: Height 5 ft 1 in Weight 164 lb Temp Pulse Resp BP Pulse Ox O2 Del Method 97.6 F 71 14 133/96 99 Room Air 04/08/24 08:26 04/08/24 08:26 04/08/24 08:26 04/08/24 08:26 04/08/24 08:26 04/08/24 08:31 Preop Diagnosis: rectocele stage 2 Operation Date: 04/08/24 09:25 Proposed Procedures p Posterior Repair Posterior Colporrhaphy 46533, N81.6(Not Applicable) - Hamlet Morse MD Was Beta Jimbo taken within 24 hours: N/A Was Clonidine taken within 24 hours: N/A Last intake: Intake Last Liquid Date 04/07/24 Last Liquid Time 22:00 Last Solid Date 04/07/24 Last Solid Time 22:30 Social Tobacco and No alcohol Exam alert, oriented x 3, clear to auscultation bilaterally and regular rate & rhythm Airway Submandibular: within normal limits Cervical ROM: within normal limits Mallampati: Class I Dentition: full Anesthetic Plan ASA status: 2 Anesthesia: General Other: Reports no prior issues with anesthesia NPO since yesterday Patient does take semaglutide, most recently taken 03/26/2024 Currently vapes nicotine Denies any cardiac issues METs greater than 4 Labs 04/08/2024 reviewed acceptable for procedure. test negative Plan for general anesthesia Medications/Allergies Home Medications Medication Instructions Recorded Confirmed Last Taken Type oxycodone-acetaminophen 7.5 mg-325 1 tab PO TID PRN Pain 09/03/23 03/31/24 04/08/24 03:00 History mg tablet (Percocet) semaglutide 0.25 mg or 0.5 mg (2 0.25 mg SUBCUT .weekly 01/31/24 03/31/24 03/26/24 History mg/1.5 mL) subcutaneous pen injector (Ozempic) Allergies Allergy/AdvReac Type Severity Reaction Status Date / Time No Known Allergies Allergy Verified 03/31/24 08:23 Current Medications Generic Name Dose Route Start Last Admin Trade Name Freq PRN Reason Stop Dose Admin Sodium Chloride 1,000 mls @ 30 mls/hr 04/08/24 07:30 04/08/24 08:28 Sodium Chloride 0.9% IV 04/09/24 07:29 30 mls/hr .Q24H SHANNON Administration [facility] Anesthesia Medical History No pertinent past medical history neghx: dm, thyroid, dvt/pe PCP: Dr. Durham in [place], [place] Surgical History H/O bilateral salpingectomy (~2021) at time of the endometrial ablation-- [facility] Hx of tonsillectomy History of endometrial ablation (~2021) she feels her fallopian tubes were removed at this time. Also had umbilical hernia repair at the [facility] time in [place] History of anterior colporrhaphy (~01/15/24) with allograft, mid urethral sling performed by Dr. Morse at [facility] in [place], [place] Family History Grandmother Breast cancer Heart disease Stroke Diabetes Grandfather Heart disease Father Heart disease Hypertension Denies family history of Colon cancer Ovarian cancer Prostate cancer Hypercholesteremia Hyperlipidemia Uterine cancer Thyroid disease Social History Smoking and tobacco/nicotine status: current some day tobacco/nicotine user (vape use) Data Anesthesia 04/08/24 08:00 04/08/24 08:00 Short CBC 04/08/24 Range/Units 08:00 WBC 6.84 (3.29-11.43) 10^3/uL Hgb 13.50 (11.27-16.99) g/dL Hct 40.0 (36-47) % MCV 91.1 (85-98) fl Plt Count 314 (157-399) 10^3/cmm Neut % (Auto) 65.4 % Neut # (Auto) 4.47 (1.8-7.7) 10^3/uL Urine 04/08/24 Range/Units 07:45 Urine Color Yellow (Yellow) Urine Appearance Clear (CLEAR) Urine pH 6.5 (5-7) Ur Specific [place] 1.021 (1.005-1.030) Urine Protein Negative (Negative) Urine Glucose (UA) Negative (Normal) Urine Ketones Negative (Negative) Urine Nitrate Negative (Negative) Urine Bilirubin Negative (Negative) Ur Leukocyte Esterase Trace A (Negative) Urine RBC 0-2 (0-2) /hpf Urine WBC 0-5 (0-5) /hpf Cardiac Studies: No Data to Display
[2024-04-08 09:12] LABS: Alanine Aminotransferase 32 U/L (0-33); Albumin Level 4.4 g/dL (3.5-5.2); Alkaline Phosphatase 41 U/L (35-105); Anion Gap 15.9 (5-19); Aspartate Amino Transferase 23 U/L (0-32); Blood Urea Nitrogen 14 mg/dL (6-20); Calcium 8.8 mg/dL (8.5-10.5); Carbon Dioxide 24 mmol/L (22-29); Chloride 104 mmol/L (98-107); Creatinine Clr Calc Pharmacy 114.9775; Globulin 2.7 g/dL (1.3-4.6); Glomerular Filtration Rate 110.7 mL/min (90-130); Glucose 80 mg/dL (65-115); Osmolality Calculated 289 mOsm/kg (285-295); Potassium 3.9 mmol/L (3.5-5.1); Sodium 140 mmol/L (136-145); Total Bilirubin 0.3 mg/dL (0.15-1.2); Total Protein 7.1 g/dL (6.6-8.7)
[2024-04-08] MEDS: ceFAZolin 2,000 mg SDV 2000 MG IVP (09:29)
[2024-04-08] MEDS: lidocaine-epi 2% PF 1:200,000 20 mL SDV INJECTION (10:07)
--- NOTE | 2024-04-08 10:50 | PM.OP ---
Operative Report Date of procedure: April 08, 2024 Pre-op diagnosis: Rectocele Post-op diagnosis: same Procedure done: Posterior colporrhaphy Surgeon: Hamlet Morse MD Estimated blood loss (mL): 100 IV fluids (mL): 900 Urine output (mL): 150 Complications: Bleeding Procedure: A dilute 2% lidocaine with epinephrine solution was infiltrated under the posterior vaginal mucosa midline and into the perineal body. An inverted triangle incision was cut in the perineum. The posterior vaginal wall was opened vertically and midline up to the apex of the rectocele. The cut edges were held and splayed laterally with a series of Allis clamp. The open vaginal mucosa was then dissected laterally with a combination of sharp and blunt dissection, exposing the perirectal fascia. The perirectal fascia was then reapproximated with interrupted #2-0 Vicryl sutures to draw the lateral folds together and tuck the rectocele back. Deep interrupted sutures of #0 Vicryl were used to reapproximate the fibers of the levator ani muscles. The excess vaginal mucosa was trimmed. The posterior vaginal wall was closed with a running locked #0 Vicryl to the hymenal tags. The superficial perineal muscles were closed with running unlocked #0 Vicryl and the perineal skin was closed with running subcuticular #2-0 Vicryl.
[2024-04-08] MEDS: fentaNYL 50 mcg/mL INJ 2mL IVP (11:20)
--- NOTE | 2024-04-08 11:50 | ANE.PACU2 ---
Inpatient post-anesthesia follow up: Airway intact: Yes Vital signs: Temperature 97.7 F Pulse Rate 70 Respiratory Rate 17 Blood Pressure 127/67 Pulse Oximetry 98 Oxygen Delivery Me thod Room Air Oxygen Flow Rate Fraction of Inspir ed Oxygen Hydration adequate: Yes Nausea and vomiting: No Pain level: 1 Mental status: Baseline
[2024-04-08] MEDS: ketorolac 30 mg/mL INJ IVP ×3 (12:36→23:27)
[2024-04-08] MEDS: simethicone 80 mg Chew PO (12:36)
[2024-04-08] MEDS: HYDROcodone-acetaminophen 5-325 mg Tablet PO ×2 (12:36→19:28)
--- NOTE | 2024-04-08 14:20 | PC.NURSE ---
Pt reports feeling the need ti have a bowel movement. This nurse educated pt about vaginal packing and how it can cause a lot of pressure that may feel like needing to have a bm. Pt reported that Dr. Morse told her she could get up and sit on the toilet but not for long and not to strain. This RN assisted pt to toilet. Pt tolerated well. Pt kirsten pad was completely saturated and the chucks pad underneath her had a saturated area that was about the size of a small dinner plate. Pt sat on toilet for about 5 minutes. Kirsten care done and kirsten pad change. Assisted pt back to bed. Pt reported feeling a bit light headed BP was 81/59 HR 60.
--- NOTE | 2024-04-08 15:33 | PC.NURSE ---
Call to to report pt bleeding and pt report of pain. Reported pt has already received hydrocodone and toradol. Received order for TXA 1 gram IV once and 0.5 mg IV Dilaudid Q6H for breakthrough pain. Call made to pharmacy to clarify if TXA could be given because order stated limited use for joint surgeries and PP hemorrhages only. Jl in pharmacy gave OK to give the TXA.
[2024-04-08] MEDS: tranexamic acid 1,000 MG/100 ML PREMIX 600 MG IV (15:50)
[2024-04-08] MEDS: HYDROmorphone 1 mg/mL INJ 1 mL 0.5 MG IVP (15:54)
[2024-04-08] MEDS: docusate sodium 100 mg Capsule PO (17:54)
[2024-04-08] MEDS: dextrose 5%-lactated ringers 1,000 ML 125 ML IV (20:29)
[2024-04-09] MEDS: sodium chloride 0.9% 500 ML IV (01:43)
[2024-04-09 02:00] VITALS: BP 123/80
[2024-04-09 05:00] VITALS: BP 120/69; PULSE 92; RESP 18; TEMP 36.7; O2SAT 96
[2024-04-09] MEDS: HYDROcodone-acetaminophen 5-325 mg Tablet PO (05:07)
[2024-04-09] MEDS: simethicone 80 mg Chew PO (05:07)
--- NOTE | 2024-04-09 05:18 | PC.NURSE ---
Vaginal packing removed. Patient tolerated procedure well. Scant bleeding noted on pad.
[2024-04-09 05:24] LABS: Hematocrit 31.4 % (36-47); Mean Corpuscular HGB Conc 32.8 g/dL (30-55); Mean Corpuscular Hemoglobin 31.2 pg (27-33); Mean Corpuscular Volume 95.2 fl (85-98); Mean Platelet Volume 10.7 fL (7.4-10.4); Platelet Count 241 10^3/cmm (157-399); Red Cell Distribution Width 12.1 % (12.1-15.1); White Blood Count 9.77 10^3/uL (3.29-11.43)
[2024-04-09] MEDS: ketorolac 30 mg/mL INJ IVP (05:25)
--- NOTE | 2024-04-09 08:50 | PM.OBGYDC ---
Discharge Providers CYANIDE CASE HARDENER Date of Admission: 04/08/24 11:36 Date of Discharge: 04/09/24 Attending Provider at Admission: Hamlet Morse MD Attending Provider at Discharge: Hamlet Morse MD Primary Care Provider: Casey Jones Reason for Visit Reason for Visit: N81.6 Hospital Course Hospital Course Mrs. Goldman 38-year-old female with a history of rectocele stage II was admitted for planned posterior colporrhaphy. The procedure was performed without complications. Overnight observation was uneventful. Tolerating diet well. Ambulating without difficulty. She was given Dilaudid once to augment pain management. She is afebrile and hemodynamically stable postoperative day 1. She was counseled regarding pelvic rest for 6 weeks (no sex, no tampons, no vaginal douches). Return to the emergency room if any fever, increased bleeding or pain. She was also counseled regarding weight lifting limitations and advised her to avoid any food items that may give her constipation and uses stool softeners. Physical Exam Narrative: GA: Alert and oriented ?3. HEENT: WNL. Heart: Regular rate and rhythm. Lungs: Clear to auscultation bilaterally. Abdomen: Bowel sounds present, nontender, minimal tenderness, incision clean and dry, no redness, pain or edema. [employer]: spotting bleeding. Extremities: No edema, no cyanosis, no calves pain. Urinary Catheter Management: Forte: Cath Placed During This Visit: yes, but has since been removed by the nurse Reason for Continuing Indwelling Catheter: Decision to DC Catheter Urinary Catheter Date of Insertion: 04/08/24 Urinary Catheter Time of Insertion: 08:56 Date Urinary Catheter Removed: 04/09/24 Time Urinary Catheter Discontinued: 05:18 History History History 4 Term 4 0 Miscarriages/Ectopic 0 Living Children 4 Discharge Data Studies Completed and Pending Laboratory Results WBC 9.77 10^3/uL (3.29-11.43) 04/09/24 05:10 RBC 3.30 10^6/uL (3.85-5.65) L 04/09/24 05:10 Hgb 10.30 g/dL (11.27-16.99) L 04/09/24 05:10 Hct 31.4 % (36-47) L 04/09/24 05:10 MCV 95.2 fl (85-98) 04/09/24 05:10 MCH 31.2 pg (27-33) 04/09/24 05:10 MCHC 32.8 g/dL (30-55) 04/09/24 05:10 RDW 12.1 % (12.1-15.1) 04/09/24 05:10 Plt Count 241 10^3/cmm (157-399) 04/09/24 05:10 MPV 10.7 fL (7.4-10.4) H 04/09/24 05:10 Neut % (Auto) 65.4 % 04/08/24 08:00 Lymph % (Auto) 27.0 % 04/08/24 08:00 Tama % (Auto) 5.4 % 04/08/24 08:00 Eos % (Auto) 1.2 % 04/08/24 08:00 Baso % (Auto) 0.7 % 04/08/24 08:00 Neut # (Auto) 4.47 10^3/uL (1.8-7.7) 04/08/24 08:00 Lymph # (Auto) 1.9 10^3/uL (0.8-4.8) 04/08/24 08:00 Tama # (Auto) 0.4 10^3/uL (0.2-0.9) 04/08/24 08:00 Eos # (Auto) 0.1 10^3/uL (0.0-0.8) 04/08/24 08:00 Baso # (Auto) 0.1 10^3/uL (0.0-0.1) 04/08/24 08:00 Nucleated RBC % (auto) 0 % 04/08/24 08:00 Nucleated RBCs # 0.0 /100WBC 04/08/24 08:00 Sodium 140 mmol/L (136-145) 04/08/24 08:00 Potassium 3.9 mmol/L (3.5-5.1) 04/08/24 08:00 Chloride 104 mmol/L (98-107) 04/08/24 08:00 Carbon Dioxide 24 mmol/L (22-29) 04/08/24 08:00 Anion Gap 15.9 (5-19) 04/08/24 08:00 BUN 14 mg/dL (6-20) 04/08/24 08:00 Creatinine 0.6 mg/dL (0.5-0.9) 04/08/24 08:00 GFR Calculation 110.7 mL/min (90-130) 04/08/24 08:00 Glucose 80 mg/dL (65-115) 04/08/24 08:00 Calculated Osmolality 289 mOsm/kg (285-295) 04/08/24 08:00 Calcium 8.8 mg/dL (8.5-10.5) 04/08/24 08:00 Total Bilirubin 0.3 mg/dL (0.15-1.2) 04/08/24 08:00 AST 23 U/L (0-32) 04/08/24 08:00 ALT 32 U/L (0-33) 04/08/24 08:00 Alkaline Phosphatase 41 U/L (35-105) 04/08/24 08:00 Total Protein 7.1 g/dL (6.6-8.7) 04/08/24 08:00 Albumin 4.4 g/dL (3.5-5.2) 04/08/24 08:00 Globulin 2.7 g/dL (1.3-4.6) 04/08/24 08:00 Urine Color Yellow (Yellow) 04/08/24 07:45 Urine Appearance Clear (CLEAR) 04/08/24 07:45 Urine pH 6.5 (5-7) 04/08/24 07:45 Ur Specific [place] 1.021 (1.005-1.030) 04/08/24 07:45 Urine Protein Negative (Negative) 04/08/24 07:45 Urine Glucose (UA) Negative (Normal) 04/08/24 07:45 Urine Ketones Negative (Negative) 04/08/24 07:45 Urine Blood Negative (Negative) 04/08/24 07:45 Urine Nitrate Negative (Negative) 04/08/24 07:45 Urine Bilirubin Negative (Negative) 04/08/24 07:45 Urine Urobilinogen 0.2 mg/dL (Negative) 04/08/24 07:45 Ur Leukocyte Esterase Trace (Negative) A 04/08/24 07:45 Urine RBC 0-2 /hpf (0-2) 04/08/24 07:45 Urine WBC 0-5 /hpf (0-5) 04/08/24 07:45 Ur Squamous Epith Cells 11-20 /hpf (0-5) 04/08/24 07:45 Amorphous Sediment Not Reportable 04/08/24 07:45 Urine Bacteria 2+ /hpf (NONE) H 04/08/24 07:45 Hyaline Casts 0.40 /lpf 04/08/24 07:45 Urine HCG, Qual Negative (Negative) 04/08/24 07:43 Blood Type A Positive 04/08/24 08:00 Rho(D) Type Rh positive 04/08/24 08:00 Antibody Screen Negative 04/08/24 08:00 Vitals Last Vital Signs Temp 98.1 F 04/09/24 05:00 Pulse 92 04/09/24 05:00 Resp 18 04/09/24 05:00 BP 120/69 04/09/24 05:00 Pulse Ox 96 04/09/24 05:00 O2 Del Method Room Air 04/09/24 05:00 Results Labs OB ([facility]): Blood Type A Positive 04/08/24 Antibody Screen Negative 04/08/24 Hct 31.4 % (36-47) L 04/09/24 Hgb 10.30 g/dL (11.27-16.99) L 04/09/24 Rho(D) Type Rh positive 04/08/24 Plt Count 241 10^3/cmm (157-399) 04/09/24 HCG, Qual Negative (Negative) 01/23/24 Pap Smear Interpret See note 09/03/23 Discharge Plan Discharge Patient Disposition: Home Condition: Stable Prescriptions: New hydrocodone-acetaminophen 5-325 mg tablet 1 tab PO Q4H PRN (Reason: pain) Qty: 20 0RF acetaminophen 325 mg capsule 325 mg PO Q4H PRN (Reason: fever or pain) Qty: 60 0RF docusate sodium [Colace] 100 mg capsule 100 mg PO BID Qty: 60 0RF ibuprofen 800 mg tablet 800 mg PO TID PRN (Reason: pain) Qty: 60 0RF metronidazole 500 mg tablet 500 mg PO BID 14 Days Qty: 28 0RF Continued Ozempic 0.25 mg or 0.5 mg(2 mg/1.5 mL) pen injector 0.25 mg SUBCUT .weekly oxycodone-acetaminophen [Percocet] 7.5-325 mg tablet 1 tab PO TID PRN (Reason: Pain) Discharge Orders: Discharge Order (Routine); Ordered 04/09/24 Ordered By: Hamlet Morse Referrals: Hamlet Morse MD [Physician] - 2 weeks Discharge Diet: Soft Mechanical Discharge Activity: Limit activity as instructed Patient Instructions: Acute Wound Care (DC), Opioid Safety, Post Anesthesia Care Activity Restrictions/Additional Instructions: 1. Please call [facility] clinic on next working day to make your post-operative appointment in 2 weeks. 2. Please stay home until you come back to the clinic on first post-hospatilization check up. 3. Please follow instructions on your medications CAREFULLY. 4. If you have abdominal incision, do not cover it unless dressing is necessary because of drainage. OK to shower, but avoid bath. Leave steri-strips until they fall off. If they are still on one week after surgery, you may remove them. 5. If you had vaginal surgery or vaginal repair, Dr. Morse may instruct you to take SITZ bath. 6. Yellow, blood tinged odorous vaginal discharge is usually normal after hysterectomy or vaginal surgeries. 7. No SEXUAL INTERCOURSE, tampons, or douches until you are completely released from the post-operative care. 8. Avoid constipation by eating right and maybe using some Metamucil or Milk of Magnesia. 9. All prescription refills are given during the working hours. Please do no wait till it runs out. Call the clinic at [phone] before your medication runs out. The clinic will get in touch with your doctor to prescribe medications if necessary. 10. Please remain within 40 mile radius from our hospital because emergencies do happen now and then during the post-operative period. 11. If you have stairs at home, take one step at a time slowly and minimize the number of trips. It helps to stay in one floor for the next few days. No lifting except what you can lift by one hand until you are released from the post-operative care. 12. Driving is discouraged until you are well healed. It may be 3-4 weeks before you feel strong enough to drive. You should be able to turn and look through the rear window without pain and you should be able to push the brake pedal very hard without pain before you drive. No fast rules, but SAFETY should be your primary concern. DO NOT drive if you are on sedating medications such as narcotics. 13. Call the clinic (during working hours) to make urgent appointment or go to the Emergency room, if any of the following occurs: i. Vaginal bleeding becomes heavy, more than a period. ii. Incision becomes red and sore, or drains pus. iii. Your TEMPERATURE is over 100.4F or you have chill. iv. IV site becomes red and swollen (a little ``knot?? is usually OK) v. Persistent nausea and vomiting vi. Persistent constipation or diarrhea vii. Rash or allergic reaction to medications. Discharge Attestations CY[employer]IDE CASE HARDENER Time Spent in Discharge Care*: greater than 30 min Coding Level of Care Code Acute Code for Chg Fwd
[2024-04-09 10:15] VITALS: BP 124/76; PULSE 74; RESP 16; TEMP 36.7
[2024-04-09 10:26] VITALS: BP 124/76; PULSE 74; RESP 16; TEMP 36.7
== END 2024-04-09 10:20 | disposition home or self-care (01) ==
LOC: OBGYN 11:36
PROVIDERS: Admitting Provider Obstetrics & Gynecology; PCP Family Medicine; Visit Provider Obstetrics & Gynecology
PROC: (CPT 57250; principal; 2024-04-08 09:15)
DX: N81.6 Rectocele (principal); M06.9 Rheumatoid arthritis, unspecified; F17.200 Nicotine dependence, unspecified, uncomplicated
CPT/HCPCS: 57250; 36415; 80053; 81001; 81025; 85025; 85027; 86850; 86900; 96374; 96376; G0378; J0690; J1100; J1170; J1885; J2250; J2405; J2704; J3010; J3490; J7030; J7040; J7121